=== PATIENT | male | born 1975 | race American Indian/Alaskan Native ===

== ENCOUNTER 2018-02-13 07:35 | Outpatient (CLI) | payer OTHER ==
[2018-02-13 08:23] LABS: Blood Urea Nitrogen 11 mg/dL (9-20)
--- NOTE | 2018-02-13 09:57 | Magnetic Resonance Report ---
MR ABDOMEN MRCP HISTORY: evaluating for primary sclerosing cholangitis, rule out liver mass. TECHNIQUE: Multiple T1 and T2-weighted images were obtained with and without fat suppression. Dynamic postcontrast imaging following IV gadolinium. Thin and thick slab MRCP images. FINDINGS: No comparison at this facility. The liver is normal size, contour and signal. No evidence for mass, surface nodularity or parenchymal disease. The hepatic vasculature and portal venous system are patent. The MRCP images demonstrate a normal pancreatic and biliary tree. No evidence for abnormal dilatation or filling defect. No cholelithiasis. No findings suggestive of primary sclerosing cholangitis. Signal characteristics of the pancreas, spleen, kidneys, adrenal glands and visualized bowel loops are unremarkable. The aorta is normal caliber. The IVC is patent. No evidence for ascites, adenopathy or inflammatory changes. Normal bone marrow signal in the visualized spine. The right hemidiaphragm is elevated or eventrated with compressive atelectasis at the right lung base. IMPRESSION: Normal liver and biliary system. Elevated or eventrated right hemidiaphragm.
== END 2018-02-13 07:36 | disposition home or self-care (01) ==
LOC: EDSEX 07:35 → MRI 07:35
PROVIDERS: ATTEND Internal Medicine
DX: R16.0 Hepatomegaly, not elsewhere classified (principal)
CPT/HCPCS: 36415; 74181; 82565; 84520; A9577